=== PATIENT | male | born 1965 | race Caucasian/White ===

== ENCOUNTER 2018-12-24 07:57 | Emergency (ER) | payer BC ==
--- NOTE | 2018-12-24 08:48 | ED ---
Lower Extremity - HPI Summary HPI Summary: 53-year-old male presents with right ankle pain for the past couple days. He denies any known injury. No fevers. No rash. He states that he is pain is worse in the mornings and is unable to place weight on it. This has never happened before. He states has been taking ibuprofen as seems to help. He states pain is the around the right ankle. Denies any calf pain. He states he sprain other ankle about a week ago. He states he's been having difficulty getting around. pain started after he had been golfing. - History of Current Complaint Chief Complaint: EDExtremityLower Stated Complaint: PAIN IN ANKLE PER PT Time Seen by Provider: 12/24/18 08:32 Pain Intensity: 6 - Allergies/Home Medications Allergies/Adverse Reactions: Allergies Allergy/AdvReac Type Severity Reaction Status Date / Time niacin [From Simcor] Allergy Burning Verified 12/24/18 08:05 sensation of skin simvastatin [From Simcor] Allergy Burning Verified 12/24/18 08:05 sensation of skin PMH/Surg Hx/FS Hx/Imm Hx Endocrine/Hematology History: Denies: Hx Anticoagulant Therapy Cardiovascular History: Reports: Hx Hypertension Infectious Disease History: No Infectious Disease History: Denies: Traveled Outside the [place] in Last 30 Days - Family History Known Family History: Positive: Non-Contributory - Social History Alcohol Use: Occasionally Smoking Status (MU): Never Smoked Tobacco Review of Systems Negative: Fever Negative: Chest Pain Negative: Shortness Of Breath Positive: Myalgia - right ankle pain All Other Systems Reviewed And Are Negative: Yes Physical Exam Triage Information Reviewed: Yes Vital Signs On Initial Exam: Initial Vitals Temp Pulse Resp BP Pulse Ox 98.0 F 78 16 120/79 95 12/24/18 08:01 12/24/18 08:01 12/24/18 08:01 12/24/18 08:01 12/24/18 08:01 Vital Signs Reviewed: Yes Appearance: Positive: Well-Appearing Skin: Positive: Warm, Dry Head/Face: Positive: Normal Head/Face Inspection Eyes: Positive: Normal, Conjunctiva Clear ENT: Positive: Pharynx normal Respiratory/Lung Sounds: Positive: Clear to Auscultation, Breath Sounds Present Cardiovascular: Positive: Normal, RRR Musculoskeletal: Positive: Limited @ - right ankle, Edema Right - ankle, Other - no rash, good pulses, capillary refill<2 secs, tenderness right ankle Neurological: Positive: Normal Psychiatric: Positive: Normal Diagnostics - Vital Signs Vital Signs Temp Pulse Resp BP Pulse Ox 12/24/18 08:01 98.0 F 78 16 120/79 95 - Laboratory Lab Statement: Any lab studies that have been ordered have been reviewed, and results considered in the medical decision making process. - Radiology ankle Radiology Interpretation Completed By: Radiologist Summary of Radiographic Findings: IMPRESSION: MILD OSTEOARTHRITIC CHANGE. Re-Evaluation - Re-Evaluation First Eval Re-Evaluation Time: 09:33 Comment: discussed xray results, patient has hx of gout and is concerned is such. does not appear as such but will treat with indomethacin for pain to cover for such. Lower Extremity Course/Dx - Course Course Of Treatment: 53-year-old male presents with right ankle pain for the past couple days. He denies any known injury. No fevers. No rash. He states that he is pain is worse in the mornings and is unable to place weight on it. This has never happened before. He states has been taking ibuprofen as seems to help. He states pain is the around the right ankle. Denies any calf pain. He states he sprain other ankle about a week ago. He states he's been having difficulty getting around. On exam has tenderness of right ankle. Neurovascular intact. X-ray shows osteoarthritic change. will give crutches and have treat with indomethacin as has hx of gout but do not suspect is such at this time. patient understand and agrees with plan. - Diagnoses Differential Diagnosis/HQI/PQRI: Positive: Fracture (Closed), Sprain, Strain Provider Diagnoses: Right ankle pain Discharge - Sign-Out/Discharge Documenting (check all that apply): Patient Departure Patient Received Moderate/Deep Sedation with Procedure: No - Discharge Plan Condition: Good Disposition: HOME Prescriptions: Indomethacin CAP* [Indocin CAP*] 50 mg PO TID PRN #21 cap PRN Reason: Pain Patient Education Materials: R.I.C.E. Treatment (ED) Referrals: Olu Sierra MD [Medical Doctor] - Esteban Mckeon MD [Primary Care Provider] - Additional Instructions: Ice, elevate, keep in YULISA take indomethacin three times a day until symptoms improve, do not take ibuprofen or Advil with this medication can take tyenlol in addition every 6 hours Follow up with ortho if no improvement Return to ED if develop or any new or worsening symptoms - Billing Disposition and Condition Condition: GOOD Disposition: Home
[2018-12-24 10:02] VITALS: BP 112/60
== END 2018-12-24 10:01 | disposition home or self-care (01) ==
LOC: ED 07:57
DX: M25.571 Pain in right ankle and joints of right foot (principal); I10 Essential (primary) hypertension; Z88.8 Allergy status to other drugs, medicaments and biological substances; M19.071 Primary osteoarthritis, right ankle and foot
CPT/HCPCS: 99282